=== PATIENT | female | born 1975 | race Caucasian/White ===

== ENCOUNTER 2016-07-21 11:13 | Emergency (ER) | payer SELFPAY ==
[~2016-07-21 11:13] MED LIST: ALBUTEROL0.09 MG/A2 IH; AMOXICILLIN500 M2 PO; AMOXICILLIN500 MG PO; AMOXIL125 MG/5 M PO; AMOXIL500 M1 PO; AMOXIL500 MG PO; ANAPROX DS550 MG PO; ANTIVERT25 MG PO; ASPI-COR81 M1 PO; ASPIRIN81 M1 PO; ATARAX25 MG PO; ATIVAN0.5 MG PO; ATIVAN1 MG PO; ATIVAN2 MG PO; AUGMENTIN 875 M1 TAB PO; AUGMENTIN 875-875 MG PO; AUGMENTIN 875875 MG PO; BACTRIM DS 8001 TA1 PO; BLEPH-10 15 ML15 ML OP; CEFADROXIL500 M1 PO; CIPRODEX 0.3%-7.5 ML OT; CLARITIN-D 10 M1 T21 PO; CLARITIN-D 12 H1 TAB PO; CLARITIN10 MG PO; CLEOCIN HCL150 MG PO; CLINDAMYCIN HC150 MG PO; CLINDAMYCIN HC300 MG PO; CORTISPORIN SUS10 ML OT; DAYPRO600 M1 PO; DIFLUCAN150 MG PO; DOXYCYCLINE100 M2 PO; EES400 MG PO; FLEXERIL10 MG PO; FLONASE 0.05% 121 EA NAS; FLONASE ALLERG9.9 ML NAS; HYDROCODONE BIT1 T11 PO; IBUPROFEN600 MG PO; K-DUR20 MEQ PO; KEFLEX500 MG PO; LEVAQUIN500 M2 PO; LEVOFLOXACIN500 MG PO; LIDEX0.05% T; LIDOCAINE VISC100 ML MM; LISINOPRIL AND1 TA1 PO; LISINOPRIL-HYDR1 TA1 PO; LISINOPRIL10 MG PO; LISINOPRIL20 MG PO; LOPRESSOR50 MG PO; MEDROL DOSEPAK4 MG PO; METOPROLOL SR50 MG PO; METOPROLOL SUC100 M2 PO; METOPROLOL100 MG PO; MOTRIN600 MG PO; MOTRIN800 MG PO; Motrin,Rufen800 MG PO; NAPROSYN500 MG PO; NORCO 10-325 T1 EACH PO; NORCO 325 MG-51 TAB PO; NORCO 5-325 TA1 EACH PO; NORFLEX100 MG PO; OMNICEF300 MG PO; PEN-VEE K500 MG PO; PENICILLIN VK500 MG PO; PERCOCET 325 MG1 TA2 PO; PHENERGAN W/DM120 ML PO; PHENERGAN25 M1 PO; PREDNICOT10 MG PO; PREDNICOT20 MG PO; PREDNISONE10 M1 PO; PREDNISONE10 MG PO; PREDNISONE20 M1 PO; PRINIVIL10 MG; PRINIVIL20 MG PO; PROVENTIL0.09 MG/A1 INH; Peridex 473 ML473 ML PO; ROBAXIN750 MG PO; ROBITUSSIN AC 110 ML PO; TESSALON PERLE100 M1 PO; TESSALON PERLE200 MG PO; TORADOL10 MG PO; TRAMADOL HCL50 MG PO; TRIMOX500 MG PO; ULTRAM50 MG PO; VIBRAMYCIN100 MG PO; VICO10300 PO; VICODIN 5-3001 EACH PO; VICODIN 5/500 505 MG PO; VICODIN ES 7501 TAB PO; VICODIN1 TAB PO; VOLTAREN50 M1 PO; ZANTAC150 MG PO; ZITHROMAX Z PA250 MG PO; ZYRTEC10 M2 PO; ZYRTEC10 MG PO; [UNRECOGNIZED DRUG - OTHER] PO
[2016-07-21] MEDS ORDERED: ROBITUSSIN AC 110 ML PO (11:28)
[2016-07-21] MEDS ORDERED: FLONASE ALLERG9.9 ML NAS (11:28)
[2016-07-21] MEDS ORDERED: PREDNISONE10 MG PO (11:28)
[2016-07-21] MEDS ORDERED: CLARITIN10 MG PO (11:28)
== END 2016-07-21 12:46 | disposition home or self-care (01) ==
LOC: ED 11:13
DX: B34.9 Viral infection, unspecified (principal); R03.0 Elevated blood-pressure reading, without diagnosis of hypertension; F17.200 Nicotine dependence, unspecified, uncomplicated; Z90.49 Acquired absence of other specified parts of digestive tract; Z98.890 Other specified postprocedural states; Z79.82 Long term (current) use of aspirin

== ENCOUNTER 2016-09-22 07:16 | Emergency (ER) | payer SELFPAY ==
[~2016-09-22] VITALS: Ht 167.6 cm; Wt 90.7 kg
[2016-09-22] MEDS ORDERED: PREDNISONE20 M1 PO (07:42)
[2016-09-22] MEDS ORDERED: AMOXICILLIN875 MG PO (07:42)
== END 2016-09-22 08:16 | disposition home or self-care (01) ==
LOC: ED 07:16
DX: J06.9 Acute upper respiratory infection, unspecified (principal); B97.89 Other viral agents as the cause of diseases classified elsewhere; J01.10 Acute frontal sinusitis, unspecified; J45.909 Unspecified asthma, uncomplicated; F17.200 Nicotine dependence, unspecified, uncomplicated; Z79.899 Other long term (current) drug therapy; Z79.82 Long term (current) use of aspirin

== ENCOUNTER 2016-10-27 07:08 | Emergency (ER) | payer SELFPAY ==
[~2016-10-27] VITALS: Ht 167.6 cm; Wt 99.8 kg
[~2016-10-27 07:08] MED LIST changes: +AMOXICILLIN875 MG PO
== END 2016-10-27 10:08 | disposition home or self-care (01) ==
LOC: ED 07:08
DX: T63.441A Toxic effect of venom of bees, accidental (unintentional), initial encounter (principal); F17.200 Nicotine dependence, unspecified, uncomplicated; I10 Essential (primary) hypertension; Z90.49 Acquired absence of other specified parts of digestive tract; Y92.9 Unspecified place or not applicable

== ENCOUNTER 2016-11-13 09:00 | Emergency (ER) | payer SELFPAY ==
[~2016-11-13] VITALS: Ht 167.6 cm; Wt 99.8 kg
[2016-11-13] MEDS ORDERED: AMOXICILLIN500 M2 PO (10:28)
[2016-11-13] MEDS ORDERED: ZYRTEC10 MG PO (10:28)
== END 2016-11-13 10:48 | disposition home or self-care (01) ==
LOC: ED 09:00
DX: R51 Headache (principal); R09.81 Nasal congestion; Z79.899 Other long term (current) drug therapy; Z79.82 Long term (current) use of aspirin; F17.200 Nicotine dependence, unspecified, uncomplicated

== ENCOUNTER 2016-12-09 11:08 | Emergency (ER) | payer SELFPAY ==
[~2016-12-09] VITALS: Ht 167.6 cm; Wt 99.8 kg
[2016-12-09] MEDS ORDERED: AMOXICILLIN500 M2 PO (11:22)
== END 2016-12-09 11:59 | disposition home or self-care (01) ==
LOC: ED 11:08
DX: K04.7 Periapical abscess without sinus (principal); F17.200 Nicotine dependence, unspecified, uncomplicated; Z90.49 Acquired absence of other specified parts of digestive tract; Z98.890 Other specified postprocedural states; Z79.82 Long term (current) use of aspirin; Z79.899 Other long term (current) drug therapy

== ENCOUNTER 2017-03-31 12:17 | Emergency (ER) | payer SELFPAY ==
[~2017-03-31] VITALS: Ht 167.6 cm; Wt 104.3 kg
[2017-03-31] MEDS ORDERED: PREDNISONE10 MG PO (12:35)
== END 2017-03-31 12:34 | disposition home or self-care (01) ==
LOC: ED 12:17
DX: M77.8 Other enthesopathies, not elsewhere classified (principal); R03.0 Elevated blood-pressure reading, without diagnosis of hypertension; F17.200 Nicotine dependence, unspecified, uncomplicated; Z79.899 Other long term (current) drug therapy

== ENCOUNTER 2017-05-26 15:46 | Emergency (ER) | payer SELFPAY ==
[~2017-05-26] VITALS: Ht 167.6 cm; Wt 94.3 kg
[2017-05-26] MEDS ORDERED: OMNICEF300 MG PO (16:15)
== END 2017-05-26 16:19 | disposition home or self-care (01) ==
LOC: ED 15:46
DX: H66.93 Otitis media, unspecified, bilateral (principal); J32.9 Chronic sinusitis, unspecified; I10 Essential (primary) hypertension; F17.200 Nicotine dependence, unspecified, uncomplicated; Z79.899 Other long term (current) drug therapy

== ENCOUNTER 2017-06-17 16:13 | Emergency (ER) | payer SELFPAY ==
[~2017-06-17] VITALS: Ht 167.6 cm; Wt 97.1 kg
[2017-06-17] MEDS ORDERED: KENALOG 0.1%80 GM T (16:23)
== END 2017-06-17 16:27 | disposition home or self-care (01) ==
LOC: ED 16:13
DX: L25.9 Unspecified contact dermatitis, unspecified cause (principal); I10 Essential (primary) hypertension; Z79.82 Long term (current) use of aspirin; Z79.899 Other long term (current) drug therapy

== ENCOUNTER 2017-09-09 16:05 | Emergency (ER) | payer SELFPAY ==
[~2017-09-09] VITALS: Ht 167.6 cm; Wt 95.7 kg
[~2017-09-09 16:05] MED LIST changes: +KENALOG 0.1%80 GM T
[2017-09-09] MEDS ORDERED: KEFLEX500 M1 PO (16:09)
[2017-09-09] MEDS ORDERED: NAPROSYN500 MG PO (16:09)
== END 2017-09-09 17:07 | disposition home or self-care (01) ==
LOC: ED 16:05
DX: S80.01XA Contusion of right knee, initial encounter (principal); R03.0 Elevated blood-pressure reading, without diagnosis of hypertension; Z79.82 Long term (current) use of aspirin; Z79.899 Other long term (current) drug therapy; Z90.49 Acquired absence of other specified parts of digestive tract; W10.1XXA Fall (on)(from) sidewalk curb, initial encounter; Y93.89 Activity, other specified; Y92.480 Sidewalk as the place of occurrence of the external cause; Y99.8 Other external cause status

== ENCOUNTER 2017-12-29 18:30 | Emergency (ER) | payer SELFPAY ==
[~2017-12-29] VITALS: Ht 167.6 cm; Wt 97.1 kg
[~2017-12-29 18:30] MED LIST changes: +KEFLEX500 M1 PO
[2017-12-29] MEDS ORDERED: AMOXICILLIN500 M2 PO (20:42)
[2017-12-29] MEDS ORDERED: DELTASONE20 M1 PO (20:42)
== END 2017-12-29 20:52 | disposition home or self-care (01) ==
LOC: ED 18:30
DX: J40 Bronchitis, not specified as acute or chronic (principal); F17.200 Nicotine dependence, unspecified, uncomplicated; Z79.899 Other long term (current) drug therapy; Z79.02 Long term (current) use of antithrombotics/antiplatelets

== ENCOUNTER 2018-05-25 08:52 | Emergency (ER) | payer SELFPAY ==
[~2018-05-25] VITALS: Ht 167.6 cm; Wt 95.3 kg
[~2018-05-25 08:52] MED LIST changes: +DELTASONE20 M1 PO
[2018-05-25] MEDS ORDERED: FLONASE ALLERG9.9 ML NAS (09:22)
[2018-05-25] MEDS ORDERED: PREDNISONE20 M1 PO (09:22)
[2018-05-25] MEDS ORDERED: ALLEGRA ALLERG180 M2 PO (09:22)
== END 2018-05-25 09:37 | disposition home or self-care (01) ==
LOC: ED 08:52
DX: H65.93 Unspecified nonsuppurative otitis media, bilateral (principal); J30.9 Allergic rhinitis, unspecified; I10 Essential (primary) hypertension; Z87.891 Personal history of nicotine dependence; Z79.899 Other long term (current) drug therapy; Z79.82 Long term (current) use of aspirin

== ENCOUNTER 2018-06-18 05:45 | Emergency (ER) | payer SELFPAY ==
[~2018-06-18] VITALS: Ht 167.6 cm; Wt 95.3 kg
--- NOTE | ~2018-06-18 | EKG ---
[place], [place] ELECTROCARDIOGRAM REPORT NAME: RACHEL SORIANO UNIT #: [id number] ROOM: DOCTOR: EPIPHANY DRAFT REPORT BIRTHDATE: [birth year] [facility] Test Date: 2018-06-18 Test Time: 06:22:51 Pat Name: RACHEL SORIANO Department: Room: Gender: F Sales Apprentice: Kathia Haddad : 1975 Requested By: SHIRA GARBER Order Number: [id number] Reading MD: Oskar Gomes MD Measurements Intervals [place] Rate: 77 P: -9 RI: 192 QRS: -5 QRSD: 91 T: 58 QT: 392 QTc: 444 Interpretive Statements Sinus rhythm LVH by voltage Anterior Q waves, possibly due to LVH Electronically Signed On 06-19-2018 11:29:01 PDT by Oskar Gomes MD CM:EKGRPT:ELECTROCARDIOGRAM REPORT [id number] SHIRA STOKES DRAFT REPORT SHIRA GARBER DO
[~2018-06-18 05:45] MED LIST changes: +ALLEGRA ALLERG180 M2 PO
[2018-06-18 06:29] LABS: BASO # 0.1 10*3/uL (0.0-0.1); BASO % 0.8 % (0.0-1.0); EOS # 0.2 10*3/uL (0.0-0.4); EOS % 2.9 % (1.0-4.0); HEMATOCRIT 43.3 % (37.0-47.0); HEMOGLOBIN 14.5 g/dl (12.0-16.0); LYMPH # 2.2 10*3/uL (1.3-4.4); LYMPH % 34.6 % (27.0-41.0); MEAN CELL VOLUME 88.9 fl (81.0-99.0); MEAN CORPUSCULAR HGB 29.8 pg (27.0-31.0); MEAN CORPUSCULAR HGB CONC 33.5 g/dl (33.0-37.0); MEAN PLATELET VOLUME 9.6 fl (9.6-12.3); MONO # 0.6 10*3/uL (0.1-1.0); MONO % 8.7 % (3.0-9.0); NEUT # 3.4 10*3/uL (2.3-7.9); NEUT % 52.7 % (47.0-73.0); PLATELET COUNT AUTOMATED 296 10*3/uL (130-400); RED BLOOD COUNT 4.87 10*6/uL (4.10-5.10); RED CELL DISTRI WIDTH 12.6 % (0-14.5); WHITE BLOOD COUNT 6.5 10*3/uL (4.8-10.8)
[2018-06-18 06:54] LABS: ALBUMIN 3.3 gm/dl (3.1-4.5); ALKALINE PHOSPHATASE 64 U/L (45-117); BUN 14 mg/dl (7-24); CHLORIDE 109 mmol/L (98-107); CREATININE 0.73 mg/dL (0.55-1.02); SGOT/AST 10 IU/L (3-35); SGPT/ALT 20 U/L (12-78); SODIUM 138 mmol/L (136-145); TOTAL PROTEIN 7.7 gm/dL (6.4-8.2)
[2018-06-18 06:58] LABS: BETA-HCG, QUANT < 1.0 mIU/mL (1-3); TROPONIN I < 0.015 ng/ml (<0.045)
[2018-06-18] MEDS ORDERED: Motrin,Rufen800 MG PO (08:57)
== END 2018-06-18 09:01 | disposition home or self-care (01) ==
LOC: ED 05:45
PROVIDERS: Student in an Organized Health Care Education/Training Program
DX: R51 Headache (principal); R11.0 Nausea; H92.03 Otalgia, bilateral; I10 Essential (primary) hypertension; E78.5 Hyperlipidemia, unspecified; F17.200 Nicotine dependence, unspecified, uncomplicated; Z79.899 Other long term (current) drug therapy; Z79.82 Long term (current) use of aspirin

== ENCOUNTER 2018-08-19 16:46 | Emergency (ER) | payer SELFPAY ==
[~2018-08-19] VITALS: Ht 167.6 cm; Wt 95.3 kg
[2018-08-19 17:05] LABS: BILIRUBIN NEGATIVE (NEGATIVE); BLOOD 3+ (NEGATIVE); CLARITY CLEAR (CLEAR); COLOR YELLOW (YELLOW); GLUCOSE NEGATIVE (NEGATIVE); KETONE NEGATIVE (NEGATIVE); LEUKO ESTERASE NEGATIVE (NEGATIVE); NITRITE NEGATIVE (NEGATIVE); SPECIFIC GRAVITY <= 1.005 (1.005-1.030); UROBILINOGEN 0.2 E.U./dl (0.2-1.0)
[2018-08-19 17:06] LABS: BASO # 0.1 10*3/uL (0.0-0.1); BASO % 0.7 % (0.0-1.0); EOS # 0.3 10*3/uL (0.0-0.4); EOS % 2.9 % (1.0-4.0); HEMATOCRIT 42.4 % (37.0-47.0); HEMOGLOBIN 14.2 g/dl (12.0-16.0); LYMPH # 3.2 10*3/uL (1.3-4.4); LYMPH % 37.7 % (27.0-41.0); MEAN CELL VOLUME 88.5 fl (81.0-99.0); MEAN CORPUSCULAR HGB 29.6 pg (27.0-31.0); MEAN CORPUSCULAR HGB CONC 33.5 g/dl (33.0-37.0); MEAN PLATELET VOLUME 9.5 fl (9.6-12.3); MONO # 0.6 10*3/uL (0.1-1.0); MONO % 7.1 % (3.0-9.0); NEUT # 4.4 10*3/uL (2.3-7.9); NEUT % 51.5 % (47.0-73.0); PLATELET COUNT AUTOMATED 312 10*3/uL (130-400); RED BLOOD COUNT 4.79 10*6/uL (4.10-5.10); RED CELL DISTRI WIDTH 12.8 % (0-14.5); WHITE BLOOD COUNT 8.6 10*3/uL (4.8-10.8)
[2018-08-19 17:14] LABS: BACTERIA TRACE; RBC 16-20 rbc/hpf (0-2); WBC 0-2 wbc/hpf (0-5)
[2018-08-19 17:20] LABS: ALBUMIN 3.6 gm/dl (3.1-4.5); ALKALINE PHOSPHATASE 71 U/L (45-117); BUN 13 mg/dl (7-24); CHLORIDE 106 mmol/L (98-107); CREATININE 0.78 mg/dL (0.55-1.02); POTASSIUM 3.8 mmol/L (3.5-5.1); SGOT/AST 9 IU/L (3-35); SGPT/ALT 25 U/L (12-78); SODIUM 138 mmol/L (136-145); TOTAL PROTEIN 7.8 gm/dL (6.4-8.2)
[2018-08-19] MEDS ORDERED: MACROBID100 M1 PO (19:03)
== END 2018-08-19 19:13 | disposition home or self-care (01) ==
LOC: ED 16:46
PROVIDERS: Nurse Practitioner Family
DX: R31.9 Hematuria, unspecified (principal); R30.0 Dysuria; R35.0 Frequency of micturition; R10.9 Unspecified abdominal pain; Z79.899 Other long term (current) drug therapy; Z79.82 Long term (current) use of aspirin; Z90.49 Acquired absence of other specified parts of digestive tract

== ENCOUNTER 2018-10-17 17:16 | Emergency (ER) | payer SELFPAY ==
[~2018-10-17] VITALS: Ht 167.6 cm; Wt 97.5 kg
[~2018-10-17 17:16] MED LIST changes: +MACROBID100 M1 PO
[2018-10-17] MEDS ORDERED: IBUPROFEN600 MG PO (17:51)
[2018-10-17] MEDS ORDERED: AUGMENTIN 875-875 MG PO (17:51)
== END 2018-10-17 17:51 | disposition home or self-care (01) ==
LOC: ED 17:16
DX: L08.82 Omphalitis not of newborn (principal); Z79.899 Other long term (current) drug therapy; Z79.82 Long term (current) use of aspirin; Z98.890 Other specified postprocedural states; Z90.89 Acquired absence of other organs; Z90.49 Acquired absence of other specified parts of digestive tract

== ENCOUNTER 2018-12-10 08:41 | Emergency (ER) | payer SELFPAY ==
[~2018-12-10] VITALS: Wt 96.2 kg
[2018-12-10] MEDS ORDERED: PREDNISONE20 M1 PO (10:44)
[2018-12-10] MEDS ORDERED: PROVENTIL HFA6.7 GM INH (10:44)
[2018-12-10] MEDS ORDERED: TESSALON PERLE100 M1 PO (10:44)
== END 2018-12-10 11:00 | disposition home or self-care (01) ==
LOC: ED 08:41
DX: J45.909 Unspecified asthma, uncomplicated (principal); J02.9 Acute pharyngitis, unspecified; F17.200 Nicotine dependence, unspecified, uncomplicated; Z79.899 Other long term (current) drug therapy; Z79.82 Long term (current) use of aspirin

== ENCOUNTER 2019-03-26 08:14 | Emergency (ER) | payer SELFPAY ==
[~2019-03-26] VITALS: Ht 167.6 cm; Wt 95.3 kg
[~2019-03-26 08:14] MED LIST changes: +PROVENTIL HFA6.7 GM INH
[2019-03-26 09:08] LABS: BASO # 0.1 10*3/uL (0.0-0.1); BASO % 1.1 % (0.0-1.0); EOS # 0.2 10*3/uL (0.0-0.4); EOS % 3.3 % (1.0-4.0); HEMATOCRIT 44.5 % (37.0-47.0); HEMOGLOBIN 14.6 g/dl (12.0-16.0); LYMPH % 35.6 % (27.0-41.0); MEAN CELL VOLUME 87.4 fl (81.0-99.0); MEAN CORPUSCULAR HGB 28.7 pg (27.0-31.0); MEAN CORPUSCULAR HGB CONC 32.8 g/dl (33.0-37.0); MEAN PLATELET VOLUME 9.7 fl (9.6-12.3); MONO # 0.4 10*3/uL (0.1-1.0); MONO % 7.7 % (3.0-9.0); NEUT % 52.3 % (47.0-73.0); PLATELET COUNT AUTOMATED 326 10*3/uL (130-400); RED BLOOD COUNT 5.09 10*6/uL (4.10-5.10); RED CELL DISTRI WIDTH 12.5 % (0-14.5); WHITE BLOOD COUNT 5.7 10*3/uL (4.8-10.8)
[2019-03-26 09:15] LABS: ACT PARTIAL THROMBO TIME 25.3 SECONDS (20.0-32.1); INTERNATIONAL NORM RATIO 0.9 (2.0-3.5)
[2019-03-26 09:22] LABS: ALBUMIN 3.6 gm/dl (3.1-4.5); ALKALINE PHOSPHATASE 65 U/L (45-117); B-hCG (QUALITATIVE) NEGATIVE (NEGATIVE); BUN 10 mg/dl (7-24); CHLORIDE 109 mmol/L (98-107); CREATININE 0.82 mg/dL (0.55-1.02); LIPASE 244 U/L (73-393); POTASSIUM 3.7 mmol/L (3.5-5.1); SGOT/AST 18 IU/L (3-35); SGPT/ALT 27 U/L (12-78); SODIUM 139 mmol/L (136-145); TOTAL PROTEIN 7.6 gm/dL (6.4-8.2)
[2019-03-26 09:25] LABS: TROPONIN I < 0.015 ng/ml (<0.045)
[2019-03-26] MEDS ORDERED: AUGMENTIN 875875 MG PO (11:20)
== END 2019-03-26 12:06 | disposition home or self-care (01) ==
LOC: ED 08:14
PROVIDERS: Emergency Medicine
DX: I70.0 Atherosclerosis of aorta (principal); K76.0 Fatty (change of) liver, not elsewhere classified; L08.9 Local infection of the skin and subcutaneous tissue, unspecified; J45.909 Unspecified asthma, uncomplicated; I10 Essential (primary) hypertension; F17.200 Nicotine dependence, unspecified, uncomplicated; Z79.2 Long term (current) use of antibiotics; Z79.82 Long term (current) use of aspirin; Z79.899 Other long term (current) drug therapy; Z90.49 Acquired absence of other specified parts of digestive tract

== ENCOUNTER 2019-05-23 14:38 | Emergency (ER) | payer BC ==
[~2019-05-23] VITALS: Ht 167.6 cm; Wt 97.5 kg
[2019-05-23 16:07] LABS: BASO % 0.3 % (0.0-1.0); EOS # 0.1 10*3/uL (0.0-0.4); EOS % 0.5 % (1.0-4.0); HEMATOCRIT 42.1 % (37.0-47.0); HEMOGLOBIN 13.7 g/dl (12.0-16.0); LYMPH # 4.8 10*3/uL (1.3-4.4); MEAN CORPUSCULAR HGB CONC 32.5 g/dl (33.0-37.0); MEAN PLATELET VOLUME 9.8 fl (9.6-12.3); MONO # 1.1 10*3/uL (0.1-1.0); MONO % 8.2 % (3.0-9.0); NEUT # 7.6 10*3/uL (2.3-7.9); NEUT % 55.6 % (47.0-73.0); PLATELET COUNT AUTOMATED 342 10*3/uL (130-400); RED BLOOD COUNT 4.73 10*6/uL (4.10-5.10); RED CELL DISTRI WIDTH 13.2 % (0-14.5); WHITE BLOOD COUNT 13.7 10*3/uL (4.8-10.8)
[2019-05-23 16:21] LABS: ALBUMIN 3.5 gm/dl (3.1-4.5); ALKALINE PHOSPHATASE 63 U/L (45-117); BUN 13 mg/dl (7-24); CHLORIDE 107 mmol/L (98-107); CREATININE 0.83 mg/dL (0.55-1.02); POTASSIUM 3.4 mmol/L (3.5-5.1); SGOT/AST 12 IU/L (3-35); SGPT/ALT 26 U/L (12-78); SODIUM 141 mmol/L (136-145); TOTAL PROTEIN 7.6 gm/dL (6.4-8.2)
[2019-05-23] MEDS ORDERED: TESSALON PERLE100 M1 PO (17:22)
[2019-05-23] MEDS ORDERED: PREDNISONE20 M1 PO (17:22)
[2019-05-23] MEDS ORDERED: PROVENTIL HFA6.7 GM INH (17:22)
== END 2019-05-23 17:30 | disposition home or self-care (01) ==
LOC: ED 14:38
PROVIDERS: Physician Assistant
DX: J45.901 Unspecified asthma with (acute) exacerbation (principal); I10 Essential (primary) hypertension; F17.200 Nicotine dependence, unspecified, uncomplicated; Z79.2 Long term (current) use of antibiotics; Z79.899 Other long term (current) drug therapy; Z90.49 Acquired absence of other specified parts of digestive tract

== ENCOUNTER → 2019-06-10 | Day surgery (SDC) | payer BC ==
[~2019-06-10] VITALS: Ht 167.6 cm; Wt 97.5 kg
[~2019-06-10] MED LIST changes: +OCUFLOX 0.3% 5 M5 ML OP; +PREDNISOLONE ACE5 M5 OP
[2019-06-10 08:40] VITALS: BP 173/82
[2019-06-10 08:55] VITALS: BP 166/79
[2019-06-10 09:10] VITALS: BP 144/72
[2019-06-10 09:25] VITALS: BP 140/76
[2019-06-10 09:40] VITALS: BP 150/78
== END | disposition home or self-care (01) ==
LOC: SDC 06-05 08:45
DX: H25.12 Age-related nuclear cataract, left eye (principal); I10 Essential (primary) hypertension; J45.909 Unspecified asthma, uncomplicated; Z87.891 Personal history of nicotine dependence; Z82.3 Family history of stroke; Z82.49 Family history of ischemic heart disease and other diseases of the circulatory system

== ENCOUNTER 2019-07-27 08:23 | Emergency (ER) | payer BC ==
[~2019-07-27] VITALS: Ht 167.6 cm; Wt 108.9 kg
[2019-07-27] MEDS ORDERED: ZESTORETIC 20-1 EACH PO (08:38)
[2019-07-27] MEDS ORDERED: FLONASE ALLERG9.9 ML NAS (09:09)
[2019-07-27] MEDS ORDERED: Motrin,Rufen800 MG PO (09:09)
[2019-07-27] MEDS ORDERED: AUGMENTIN 875875 MG PO (09:09)
== END 2019-07-27 09:12 | disposition home or self-care (01) ==
LOC: ED 08:23
DX: J01.90 Acute sinusitis, unspecified (principal); I10 Essential (primary) hypertension; J45.909 Unspecified asthma, uncomplicated; F17.200 Nicotine dependence, unspecified, uncomplicated; Z79.899 Other long term (current) drug therapy; Z90.49 Acquired absence of other specified parts of digestive tract; Z98.890 Other specified postprocedural states

== ENCOUNTER → 2019-08-12 | Day surgery (SDC) | payer BC ==
[~2019-08-12] VITALS: Ht 167.6 cm; Wt 108.9 kg
[~2019-08-12] MED LIST changes: +ASPIRIN CHEWABL81 MG PO; +ZESTORETIC 20-1 EACH PO
[2019-08-12 06:40] VITALS: BP 180/89
[2019-08-12 08:20] VITALS: BP 195/91
[2019-08-12 08:34] VITALS: BP 165/71
[2019-08-12 08:47] VITALS: BP 160/73
[2019-08-12 09:18] VITALS: BP 168/84
== END | disposition home or self-care (01) ==
LOC: SDC 07-02 08:00
DX: H25.811 Combined forms of age-related cataract, right eye (principal); I10 Essential (primary) hypertension; J45.909 Unspecified asthma, uncomplicated; M19.90 Unspecified osteoarthritis, unspecified site; Z87.891 Personal history of nicotine dependence; Z82.49 Family history of ischemic heart disease and other diseases of the circulatory system; Z82.3 Family history of stroke; Z80.8 Family history of malignant neoplasm of other organs or systems

== ENCOUNTER 2019-09-28 17:27 | Emergency (ER) | payer BC ==
[~2019-09-28] VITALS: Ht 167.6 cm; Wt 95.3 kg
[2019-09-28] MEDS ORDERED: MEDROL DOSEPAK4 MG PO (18:01)
== END 2019-09-28 18:11 | disposition home or self-care (01) ==
LOC: ED 17:27
DX: M77.9 Enthesopathy, unspecified (principal); M25.522 Pain in left elbow; Z79.899 Other long term (current) drug therapy; Z79.82 Long term (current) use of aspirin; X58.XXXA Exposure to other specified factors, initial encounter; Y93.89 Activity, other specified; Y92.89 Other specified places as the place of occurrence of the external cause; Y99.0 Civilian activity done for income or pay

== ENCOUNTER 2019-10-24 10:50 | Emergency (ER) | payer BC ==
[~2019-10-24] VITALS: Ht 167.6 cm; Wt 104.3 kg
[2019-10-24] MEDS ORDERED: PROAIR HFA8.5 GM INH (13:31)
[2019-10-24] MEDS ORDERED: PREDNISONE50 MG PO (13:31)
[2019-10-24] MEDS ORDERED: ZITHROMAX250 MG PO (13:31)
[2019-10-24] MEDS ORDERED: ZESTORETIC 20-1 EACH PO (13:31)
== END 2019-10-24 13:37 | disposition home or self-care (01) ==
LOC: ED 10:50
DX: J20.9 Acute bronchitis, unspecified (principal); Z76.0 Encounter for issue of repeat prescription; I10 Essential (primary) hypertension; J45.909 Unspecified asthma, uncomplicated; F17.200 Nicotine dependence, unspecified, uncomplicated; Z79.82 Long term (current) use of aspirin; Z79.899 Other long term (current) drug therapy; Z90.49 Acquired absence of other specified parts of digestive tract

== ENCOUNTER 2020-02-01 07:18 | Emergency (ER) | payer BC ==
[~2020-02-01] VITALS: Wt 104.3 kg
[~2020-02-01 07:18] MED LIST changes: +PREDNISONE50 MG PO; +PROAIR HFA8.5 GM INH; +ZITHROMAX250 MG PO
[2020-02-01] MEDS ORDERED: TYLENOL325 M1 PO ×3 (08:35→14:45)
[2020-02-01] MEDS ORDERED: MUCINEX DM 30/61 TAB PO ×3 (08:35→14:45)
[2020-02-01] MEDS ORDERED: NAPROXEN250 MG PO ×3 (08:35→14:45)
[2020-02-01] MEDS ORDERED: FLONASE ALLERG9.9 ML NAS ×3 (08:35→14:45)
== END 2020-02-01 08:37 | disposition home or self-care (01) ==
LOC: ED 07:18
DX: J06.9 Acute upper respiratory infection, unspecified (principal); J45.909 Unspecified asthma, uncomplicated; Z79.899 Other long term (current) drug therapy

== ENCOUNTER 2020-02-16 10:58 | Emergency (ER) | payer BC ==
[~2020-02-16 10:58] MED LIST changes: +MUCINEX DM 30/61 TAB PO; +NAPROXEN250 MG PO; +TYLENOL325 M1 PO
[2020-02-16] MEDS ORDERED: PREDNISONE20 M1 PO (12:32)
[2020-02-16] MEDS ORDERED: PROVENTIL HFA6.7 GM PO (12:32)
== END 2020-02-16 12:43 | disposition home or self-care (01) ==
LOC: ED 10:58
DX: J45.901 Unspecified asthma with (acute) exacerbation (principal); I10 Essential (primary) hypertension; F41.9 Anxiety disorder, unspecified; Z90.49 Acquired absence of other specified parts of digestive tract; Z79.899 Other long term (current) drug therapy

== ENCOUNTER 2020-07-12 08:02 | Emergency (ER) | payer BC ==
[~2020-07-12] VITALS: Wt 104.3 kg
[~2020-07-12 08:02] MED LIST changes: +PROVENTIL HFA6.7 GM PO
[2020-07-12 08:46] LABS: BASO % 0.8 % (0.0-1.0); EOS # 0.2 10*3/uL (0.0-0.4); EOS % 3.7 % (1.0-4.0); HEMATOCRIT 42.6 % (37.0-47.0); LYMPH # 1.8 10*3/uL (1.3-4.4); LYMPH % 36.3 % (27.0-41.0); MEAN CELL VOLUME 86.1 fl (81.0-99.0); MEAN CORPUSCULAR HGB 28.1 pg (27.0-31.0); MEAN CORPUSCULAR HGB CONC 32.6 g/dl (33.0-37.0); MEAN PLATELET VOLUME 9.5 fl (9.6-12.3); MONO # 0.4 10*3/uL (0.1-1.0); MONO % 7.9 % (3.0-9.0); NEUT # 2.5 10*3/uL (2.3-7.9); NEUT % 51.1 % (47.0-73.0); PLATELET COUNT AUTOMATED 292 10*3/uL (130-400); RED BLOOD COUNT 4.95 10*6/uL (4.10-5.10); WHITE BLOOD COUNT 4.8 10*3/uL (4.8-10.8)
[2020-07-12 09:01] LABS: ALBUMIN 3.2 gm/dl (3.1-4.5); ALKALINE PHOSPHATASE 68 U/L (45-117); BUN 10 mg/dl (7-24); CHLORIDE 107 mmol/L (98-107); CREATININE 0.84 mg/dL (0.55-1.02); POTASSIUM 3.4 mmol/L (3.5-5.1); SGOT/AST 15 IU/L (3-35); SGPT/ALT 31 U/L (12-78); SODIUM 138 mmol/L (136-145); TOTAL PROTEIN 7.4 gm/dL (6.4-8.2)
[2020-07-12] MEDS ORDERED: AUGMENTIN 875875 MG PO ×2 (09:33)
[2020-07-12] MEDS ORDERED: PREDNISONE50 MG PO ×2 (09:33)
[2020-07-12] MEDS ORDERED: PROAIR HFA8.5 GM INH (09:33)
== END 2020-07-12 09:37 | disposition home or self-care (01) ==
LOC: ED 08:02
PROVIDERS: Internal Medicine
DX: J06.9 Acute upper respiratory infection, unspecified (principal); F17.200 Nicotine dependence, unspecified, uncomplicated; Z79.899 Other long term (current) drug therapy; Z98.890 Other specified postprocedural states; Z90.49 Acquired absence of other specified parts of digestive tract

== ENCOUNTER 2020-07-27 08:19 | Emergency (ER) | payer BC ==
[~2020-07-27] VITALS: Ht 167.6 cm; Wt 104.3 kg
[2020-07-27] MEDS ORDERED: NAPROXEN250 MG PO (10:26)
[2020-07-27] MEDS ORDERED: TYLENOL325 M1 PO (10:26)
== END 2020-07-27 10:34 | disposition home or self-care (01) ==
LOC: ED 08:19
DX: S49.91XA Unspecified injury of right shoulder and upper arm, initial encounter (principal); S59.901A Unspecified injury of right elbow, initial encounter; J45.909 Unspecified asthma, uncomplicated; F17.200 Nicotine dependence, unspecified, uncomplicated; Z98.890 Other specified postprocedural states; Z79.899 Other long term (current) drug therapy; Z79.82 Long term (current) use of aspirin; Z90.49 Acquired absence of other specified parts of digestive tract; X58.XXXA Exposure to other specified factors, initial encounter; Y93.89 Activity, other specified; Y92.89 Other specified places as the place of occurrence of the external cause; Y99.8 Other external cause status

== ENCOUNTER 2020-09-04 05:16 | Emergency (ER) | payer BC ==
[~2020-09-04] VITALS: Ht 167.6 cm; Wt 104.3 kg
[2020-09-04] MEDS ORDERED: IBU800 M1 PO (05:29)
[2020-09-04] MEDS ORDERED: METHOCARBAMOL750 M1 PO (05:29)
== END 2020-09-04 05:52 | disposition home or self-care (01) ==
LOC: ED 05:16
DX: S29.012A Strain of muscle and tendon of back wall of thorax, initial encounter (principal); Z79.899 Other long term (current) drug therapy; Z98.890 Other specified postprocedural states; Z90.49 Acquired absence of other specified parts of digestive tract; Z79.82 Long term (current) use of aspirin; Z90.721 Acquired absence of ovaries, unilateral; X58.XXXA Exposure to other specified factors, initial encounter; Y93.89 Activity, other specified; Y92.89 Other specified places as the place of occurrence of the external cause; Y99.8 Other external cause status

== ENCOUNTER 2021-01-01 12:37 | Emergency (ER) | payer BC ==
[~2021-01-01] VITALS: Ht 167.6 cm; Wt 108.9 kg
[~2021-01-01 12:37] MED LIST changes: +IBU800 M1 PO; +METHOCARBAMOL750 M1 PO
[2021-01-01] MEDS ORDERED: DOXYCYCLINE150 MG PO (13:15)
[2021-01-01] MEDS ORDERED: Motrin,Rufen800 MG PO (13:15)
== END 2021-01-01 13:17 | disposition home or self-care (01) ==
LOC: ED 12:37
DX: B48.8 Other specified mycoses (principal)

== ENCOUNTER 2021-03-21 03:43 | Emergency (ER) | payer BC ==
[~2021-03-21] VITALS: Ht 172.7 cm; Wt 95.3 kg
[~2021-03-21 03:43] MED LIST changes: +DOXYCYCLINE150 MG PO
[2021-03-21] MEDS ORDERED: SEPTDS PO (04:01)
== END 2021-03-21 04:08 | disposition home or self-care (01) ==
LOC: ED 03:43
DX: L03.311 Cellulitis of abdominal wall (principal)

== ENCOUNTER 2021-05-27 12:30 | Inpatient (IN) | payer BC ==
[~2021-05-27] VITALS: Ht 167.6 cm; Wt 99.5 kg
[2021-05-27] VITALS (7 sets, daily range): BP systolic 152–218; BP diastolic 72–85
[~2021-05-27 12:30] MED LIST changes: +SEPTDS PO
[2021-05-27 13:43] LABS: BASO % 0.7 % (0.0-1.0); EOS # 0.2 10*3/uL (0.0-0.4); EOS % 2.8 % (1.0-4.0); HEMATOCRIT 42.6 % (37.0-47.0); LYMPH # 1.7 10*3/uL (1.3-4.4); LYMPH % 29.7 % (27.0-41.0); MEAN CELL VOLUME 86.9 fl (81.0-99.0); MEAN CORPUSCULAR HGB 29.2 pg (27.0-31.0); MEAN CORPUSCULAR HGB CONC 33.6 g/dl (33.0-37.0); MEAN PLATELET VOLUME 9.6 fl (9.6-12.3); MONO # 0.5 10*3/uL (0.1-1.0); MONO % 8.1 % (3.0-9.0); NEUT # 3.4 10*3/uL (2.3-7.9); NEUT % 58.4 % (47.0-73.0); PLATELET COUNT AUTOMATED 280 10*3/uL (130-400); RED CELL DISTRI WIDTH 13.1 % (0-14.5); WHITE BLOOD COUNT 5.8 10*3/uL (4.8-10.8)
[2021-05-27 13:57] LABS: ACT PARTIAL THROMBO TIME 25.7 SECONDS (20.0-32.1)
[2021-05-27 14:13] LABS: ALKALINE PHOSPHATASE 68 U/L (45-117); BUN 12 mg/dl (7-24); CHLORIDE 107 mmol/L (98-107); LIPASE 159 U/L (73-393); POTASSIUM 3.8 mmol/L (3.5-5.1); SGOT/AST 17 IU/L (3-35); SGPT/ALT 26 U/L (12-78); SODIUM 138 mmol/L (136-145); TOTAL PROTEIN 7.6 gm/dL (6.4-8.2)
[2021-05-27] MEDS ORDERED: ZESTORETIC 20-1 EACH PO (14:45)
[2021-05-27 18:57] LABS: BILIRUBIN Negative (Negative); BLOOD Negative (Negative); CLARITY Clear (Clear); COLOR Yellow (Yellow); GLUCOSE Negative (Negative); KETONE Negative (Negative); LEUKO ESTERASE Negative (Negative); NITRITE Negative (Negative); SPECIFIC GRAVITY >= 1.030 (1.001-1.030)
[2021-05-27 19:09] LABS: WBC 0-2 wbc/hpf (0-5)
[2021-05-28] VITALS (40 sets, daily range): BP systolic 102–173; BP diastolic 37–90
[2021-05-28 06:25] LABS: BASO # 0.1 10*3/uL (0.0-0.1); BASO % 0.8 % (0.0-1.0); EOS # 0.2 10*3/uL (0.0-0.4); HEMATOCRIT 39.7 % (37.0-47.0); LYMPH # 2.1 10*3/uL (1.3-4.4); LYMPH % 33.2 % (27.0-41.0); MEAN CORPUSCULAR HGB 28.8 pg (27.0-31.0); MEAN CORPUSCULAR HGB CONC 32.7 g/dl (33.0-37.0); MEAN PLATELET VOLUME 10.1 fl (9.6-12.3); MONO # 0.5 10*3/uL (0.1-1.0); MONO % 8.5 % (3.0-9.0); NEUT # 3.4 10*3/uL (2.3-7.9); NEUT % 54.3 % (47.0-73.0); PLATELET COUNT AUTOMATED 264 10*3/uL (130-400); RED BLOOD COUNT 4.51 10*6/uL (4.10-5.10); RED CELL DISTRI WIDTH 13.2 % (0-14.5); WHITE BLOOD COUNT 6.2 10*3/uL (4.8-10.8)
[2021-05-28 06:45] LABS: CHLORIDE 109 mmol/L (98-107); POTASSIUM 3.9 mmol/L (3.5-5.1); SODIUM 138 mmol/L (136-145)
[2021-05-28 06:57] LABS: ALKALINE PHOSPHATASE 59 U/L (45-117); BUN 17 mg/dl (7-24); CHOLESTEROL 173 mg/dL (<200); CREATININE 0.68 mg/dL (0.55-1.02); FREE T4 0.98 ng/dl (0.76-1.46); LDL CHOLESTEROL 110 mg/dL (9-159); SGOT/AST 26 IU/L (3-35); SGPT/ALT 31 U/L (12-78); TOTAL PROTEIN 6.9 gm/dL (6.4-8.2); TRIGLYCERIDES 129 mg/dl (<150)
[2021-05-29] VITALS (32 sets, daily range): BP systolic 117–161; BP diastolic 44–93
[2021-05-29 06:16] LABS: BUN 13 mg/dl (7-24); CHLORIDE 108 mmol/L (98-107); POTASSIUM 4.3 mmol/L (3.5-5.1); SODIUM 138 mmol/L (136-145)
[2021-05-29 06:20] LABS: BASO % 0.7 % (0.0-1.0); EOS # 0.2 10*3/uL (0.0-0.4); HEMATOCRIT 38.1 % (37.0-47.0); LYMPH # 2.3 10*3/uL (1.3-4.4); LYMPH % 39.2 % (27.0-41.0); MEAN CELL VOLUME 88.4 fl (81.0-99.0); MEAN CORPUSCULAR HGB 28.8 pg (27.0-31.0); MEAN CORPUSCULAR HGB CONC 32.5 g/dl (33.0-37.0); MEAN PLATELET VOLUME 10.3 fl (9.6-12.3); MONO # 0.5 10*3/uL (0.1-1.0); MONO % 8.5 % (3.0-9.0); NEUT # 2.8 10*3/uL (2.3-7.9); NEUT % 48.4 % (47.0-73.0); PLATELET COUNT AUTOMATED 261 10*3/uL (130-400); RED BLOOD COUNT 4.31 10*6/uL (4.10-5.10); WHITE BLOOD COUNT 5.7 10*3/uL (4.8-10.8)
[2021-05-29] MEDS ORDERED: METOPROLOL SUCC50 M1 PO (07:06)
[2021-05-29] MEDS ORDERED: ATORVASTATIN CA80 M1 PO (07:06)
[2021-05-29] MEDS ORDERED: VITAMIN D31250 MCG PO (12:14)
== END 2021-05-29 08:40 | disposition other institution (70) | DRG 282 ==
LOC: ED 12:30 → EDHOLD 17:02 → 5E 17:25 → ICCU 05-28 14:42
PROVIDERS: Internal Medicine; Physician Assistant; ADMIT Internal Medicine; ATTEND Internal Medicine
DX: I21.4 Non-ST elevation (NSTEMI) myocardial infarction (principal); F17.210 Nicotine dependence, cigarettes, uncomplicated; E55.9 Vitamin D deficiency, unspecified; E87.8 Other disorders of electrolyte and fluid balance, not elsewhere classified; E78.5 Hyperlipidemia, unspecified; I10 Essential (primary) hypertension; R73.9 Hyperglycemia, unspecified; E66.9 Obesity, unspecified; Z82.49 Family history of ischemic heart disease and other diseases of the circulatory system; Z90.49 Acquired absence of other specified parts of digestive tract; Z79.82 Long term (current) use of aspirin; Z71.6 Tobacco abuse counseling; Z79.899 Other long term (current) drug therapy; Z68.35 Body mass index [BMI] 35.0-35.9, adult

== ENCOUNTER 2021-06-05 11:05 | Emergency (ER) | payer BC ==
[~2021-06-05] VITALS: Ht 167.6 cm; Wt 96.2 kg
[~2021-06-05 11:05] MED LIST changes: +ATORVASTATIN CA80 M1 PO; +METOPROLOL SUCC50 M1 PO; +VITAMIN D31250 MCG PO
[2021-06-05 12:46] LABS: BASO % 0.5 % (0.0-1.0); EOS # 0.2 10*3/uL (0.0-0.4); EOS % 2.4 % (1.0-4.0); HEMATOCRIT 38.8 % (37.0-47.0); LYMPH # 1.4 10*3/uL (1.3-4.4); LYMPH % 19.3 % (27.0-41.0); MEAN CELL VOLUME 87.2 fl (81.0-99.0); MEAN CORPUSCULAR HGB 28.8 pg (27.0-31.0); MEAN PLATELET VOLUME 10.3 fl (9.6-12.3); MONO # 0.7 10*3/uL (0.1-1.0); MONO % 9.2 % (3.0-9.0); NEUT % 68.3 % (47.0-73.0); PLATELET COUNT AUTOMATED 399 10*3/uL (130-400); RED BLOOD COUNT 4.45 10*6/uL (4.10-5.10); RED CELL DISTRI WIDTH 13.2 % (0-14.5); WHITE BLOOD COUNT 7.4 10*3/uL (4.8-10.8)
[2021-06-05 12:59] LABS: ACT PARTIAL THROMBO TIME 27.1 SECONDS (20.0-32.1)
[2021-06-05 13:00] LABS: ALKALINE PHOSPHATASE 68 U/L (45-117); BUN 23 mg/dl (7-24); CHLORIDE 110 mmol/L (98-107); CREATININE 0.92 mg/dL (0.55-1.02); POTASSIUM 4.1 mmol/L (3.5-5.1); SGOT/AST 23 IU/L (3-35); SGPT/ALT 33 U/L (12-78); SODIUM 136 mmol/L (136-145)
== END 2021-06-05 19:30 | disposition home or self-care (01) ==
LOC: ED 11:05
PROVIDERS: Physician Assistant
DX: S30.1XXA Contusion of abdominal wall, initial encounter (principal); Z79.899 Other long term (current) drug therapy; Z79.82 Long term (current) use of aspirin; Z90.49 Acquired absence of other specified parts of digestive tract; Z98.890 Other specified postprocedural states; Z87.891 Personal history of nicotine dependence; X58.XXXA Exposure to other specified factors, initial encounter; Y93.89 Activity, other specified; Y92.89 Other specified places as the place of occurrence of the external cause; Y99.8 Other external cause status

== ENCOUNTER → 2021-07-27 | Outpatient (CLI) | payer BC ==
[~2021-07-27] MED LIST changes: +BRILINTA90 M1 PO; +LISINOPRIL40 MG PO
== END | disposition home or self-care (01) ==
LOC: CARD 14:47
PROVIDERS: ATTEND Internal Medicine
DX: I34.1 Nonrheumatic mitral (valve) prolapse (principal); I21.4 Non-ST elevation (NSTEMI) myocardial infarction

== ENCOUNTER 2021-09-28 07:23 | Inpatient (IN) | payer BC ==
[2021-09-28] VITALS (8 sets, daily range): BP systolic 131–182; BP diastolic 59–87
[~2021-09-28] VITALS: Ht 167.6 cm; Wt 94.9 kg
[2021-09-28 07:46] LABS: BASO % 0.8 % (0.0-1.0); EOS # 0.2 10*3/uL (0.0-0.4); EOS % 3.1 % (1.0-4.0); HEMATOCRIT 39.6 % (37.0-47.0); LYMPH # 1.6 10*3/uL (1.3-4.4); LYMPH % 30.7 % (27.0-41.0); MEAN CORPUSCULAR HGB 28.6 pg (27.0-31.0); MEAN CORPUSCULAR HGB CONC 32.8 g/dl (33.0-37.0); MONO # 0.4 10*3/uL (0.1-1.0); MONO % 7.7 % (3.0-9.0); NEUT % 57.5 % (47.0-73.0); PLATELET COUNT AUTOMATED 302 10*3/uL (130-400); RED BLOOD COUNT 4.55 10*6/uL (4.10-5.10); RED CELL DISTRI WIDTH 13.2 % (0-14.5); WHITE BLOOD COUNT 5.2 10*3/uL (4.8-10.8)
[2021-09-28 07:58] LABS: ACT PARTIAL THROMBO TIME 26.8 SECONDS (20.0-32.1)
[2021-09-28 08:04] LABS: ALKALINE PHOSPHATASE 73 U/L (45-117); BUN 10 mg/dl (7-24); CHLORIDE 112 mmol/L (98-107); CREATININE 0.67 mg/dL (0.55-1.02); POTASSIUM 3.7 mmol/L (3.5-5.1); SGOT/AST 17 IU/L (3-35); SGPT/ALT 25 U/L (12-78); SODIUM 141 mmol/L (136-145)
[2021-09-28] MEDS ORDERED: COREG3.125 MG PO (10:59)
[2021-09-29] VITALS: BP 147/84
[2021-09-29 06:07] LABS: BASO % 0.9 % (0.0-1.0); EOS # 0.2 10*3/uL (0.0-0.4); EOS % 3.5 % (1.0-4.0); HEMATOCRIT 39.7 % (37.0-47.0); LYMPH # 1.7 10*3/uL (1.3-4.4); LYMPH % 36.5 % (27.0-41.0); MEAN CELL VOLUME 87.6 fl (81.0-99.0); MEAN CORPUSCULAR HGB 28.7 pg (27.0-31.0); MEAN CORPUSCULAR HGB CONC 32.7 g/dl (33.0-37.0); MEAN PLATELET VOLUME 10.4 fl (9.6-12.3); MONO # 0.3 10*3/uL (0.1-1.0); MONO % 7.4 % (3.0-9.0); NEUT # 2.4 10*3/uL (2.3-7.9); NEUT % 51.7 % (47.0-73.0); PLATELET COUNT AUTOMATED 281 10*3/uL (130-400); RED BLOOD COUNT 4.53 10*6/uL (4.10-5.10); RED CELL DISTRI WIDTH 13.2 % (0-14.5); WHITE BLOOD COUNT 4.6 10*3/uL (4.8-10.8)
[2021-09-29 06:12] LABS: ALKALINE PHOSPHATASE 72 U/L (45-117); BUN 12 mg/dl (7-24); CHLORIDE 112 mmol/L (98-107); CHOLESTEROL 89 mg/dL (<200); CREATININE 0.77 mg/dL (0.55-1.02); LDL CHOLESTEROL 32 mg/dL (9-159); POTASSIUM 3.7 mmol/L (3.5-5.1); SGOT/AST 16 IU/L (3-35); SODIUM 142 mmol/L (136-145); TOTAL PROTEIN 6.7 gm/dL (6.4-8.2); TRIGLYCERIDES 147 mg/dl (<150)
[2021-09-29 06:19] LABS: SGPT/ALT 26 U/L (12-78)
[2021-09-29 08:00] VITALS: BP 178/74
[2021-09-29] MEDS ORDERED: AMLODIPINE BESYL5 MG PO (15:06)
[2021-09-29] MEDS ORDERED: CARVEDILOL6.25 MG PO (15:06)
[2021-09-29 16:12] VITALS: BP 160/72
== END 2021-09-29 16:29 | disposition home or self-care (01) | DRG 206 ==
LOC: ED 07:23 → EDHOLD 09:35 → 5E 09:35 → EDHOLD 09:42 → 5E 10:11
PROVIDERS: Emergency Medicine; Registered Nurse; ADMIT Family Medicine; ATTEND Family Medicine
PROC: 4A02XM4 Measurement of Cardiac Total Activity, External Approach (ICD-10-PCS; principal; 2021-09-29)
PROC: 3E073KZ Introduction of Other Diagnostic Substance into Coronary Artery, Percutaneous Approach (ICD-10-PCS; 2021-09-29)
DX: M94.0 Chondrocostal junction syndrome [Tietze] (principal); I25.10 Atherosclerotic heart disease of native coronary artery without angina pectoris; J45.909 Unspecified asthma, uncomplicated; I10 Essential (primary) hypertension; E55.9 Vitamin D deficiency, unspecified; F17.210 Nicotine dependence, cigarettes, uncomplicated; E78.2 Mixed hyperlipidemia; I25.2 Old myocardial infarction; Z90.49 Acquired absence of other specified parts of digestive tract; Z95.5 Presence of coronary angioplasty implant and graft; Z82.49 Family history of ischemic heart disease and other diseases of the circulatory system

== ENCOUNTER 2021-10-31 09:55 | Emergency (ER) | payer BC ==
[~2021-10-31 09:55] MED LIST changes: +AMLODIPINE BESYL5 MG PO; +CARVEDILOL6.25 MG PO; +COREG3.125 MG PO
[2021-10-31 12:09] LABS: BASO % 0.3 % (0.0-1.0); EOS % 1.3 % (1.0-4.0); HEMATOCRIT 44.1 % (37.0-47.0); LYMPH # 1.3 10*3/uL (1.3-4.4); LYMPH % 41.2 % (27.0-41.0); MEAN CELL VOLUME 85.3 fl (81.0-99.0); MEAN CORPUSCULAR HGB 27.7 pg (27.0-31.0); MEAN CORPUSCULAR HGB CONC 32.4 g/dl (33.0-37.0); MEAN PLATELET VOLUME 9.6 fl (9.6-12.3); MONO # 0.3 10*3/uL (0.1-1.0); NEUT # 1.5 10*3/uL (2.3-7.9); NEUT % 49.2 % (47.0-73.0); PLATELET COUNT AUTOMATED 241 10*3/uL (130-400); RED BLOOD COUNT 5.17 10*6/uL (4.10-5.10); RED CELL DISTRI WIDTH 13.7 % (0-14.5); WHITE BLOOD COUNT 3.1 10*3/uL (4.8-10.8)
[2021-10-31 12:20] LABS: ACT PARTIAL THROMBO TIME 26.5 SECONDS (20.0-32.1)
[2021-10-31 12:34] LABS: ALKALINE PHOSPHATASE 73 U/L (45-117); BUN 12 mg/dl (7-24); CHLORIDE 111 mmol/L (98-107); LIPASE 195 U/L (73-393); POTASSIUM 3.9 mmol/L (3.5-5.1); SGOT/AST 25 IU/L (3-35); SGPT/ALT 38 U/L (12-78); SODIUM 138 mmol/L (136-145); TOTAL PROTEIN 7.8 gm/dL (6.4-8.2)
== END 2021-10-31 15:12 | disposition home or self-care (01) ==
LOC: ED 09:55
PROVIDERS: Physician Assistant
DX: E86.0 Dehydration (principal); Z79.899 Other long term (current) drug therapy; Z79.82 Long term (current) use of aspirin; F17.200 Nicotine dependence, unspecified, uncomplicated; Z90.49 Acquired absence of other specified parts of digestive tract; Z98.890 Other specified postprocedural states

== ENCOUNTER 2021-11-29 09:34 | Emergency (ER) | payer BC ==
[~2021-11-29] VITALS: Ht 167.6 cm; Wt 97.5 kg
[2021-11-29] MEDS ORDERED: CLEOCIN HCL300 MG PO (10:26)
== END 2021-11-29 10:52 | disposition home or self-care (01) ==
LOC: ED 09:34
DX: K04.7 Periapical abscess without sinus (principal); F17.200 Nicotine dependence, unspecified, uncomplicated; Z90.49 Acquired absence of other specified parts of digestive tract; Z79.82 Long term (current) use of aspirin; Z79.899 Other long term (current) drug therapy

== ENCOUNTER 2022-03-28 13:23 | Emergency (ER) | payer BC ==
[~2022-03-28] VITALS: Ht 167.6 cm; Wt 95.3 kg
[~2022-03-28 13:23] MED LIST changes: +CLEOCIN HCL300 MG PO
[2022-03-28] MEDS ORDERED: CEFDINIR300 MG PO (16:54)
[2022-03-28] MEDS ORDERED: MEDI-MECLIZINE25 MG PO (16:54)
== END 2022-03-28 17:08 | disposition home or self-care (01) ==
LOC: ED 13:23
DX: H66.91 Otitis media, unspecified, right ear (principal); R42 Dizziness and giddiness; Z90.49 Acquired absence of other specified parts of digestive tract; Z98.890 Other specified postprocedural states; F17.200 Nicotine dependence, unspecified, uncomplicated

== ENCOUNTER 2022-06-08 20:28 | Emergency (ER) | payer BC ==
[~2022-06-08] VITALS: Ht 167.6 cm; Wt 99.8 kg
[~2022-06-08 20:28] MED LIST changes: +CEFDINIR300 MG PO; +MEDI-MECLIZINE25 MG PO
== END 2022-06-08 22:13 | disposition home or self-care (01) ==
LOC: ED 20:28
DX: S60.222A Contusion of left hand, initial encounter (principal); I10 Essential (primary) hypertension; J45.909 Unspecified asthma, uncomplicated; F41.9 Anxiety disorder, unspecified; Z98.890 Other specified postprocedural states; F17.200 Nicotine dependence, unspecified, uncomplicated; Z90.49 Acquired absence of other specified parts of digestive tract; W01.0XXA Fall on same level from slipping, tripping and stumbling without subsequent striking against object, initial encounter; Y93.89 Activity, other specified; Y92.009 Unspecified place in unspecified non-institutional (private) residence as the place of occurrence of the external cause; Y99.8 Other external cause status

== ENCOUNTER 2022-07-11 09:58 | Emergency (ER) | payer BC ==
[~2022-07-11] VITALS: Ht 167.6 cm; Wt 104.3 kg
[2022-07-11] MEDS ORDERED: VIBRA-TAB100 MG PO (10:17)
== END 2022-07-11 11:22 | disposition home or self-care (01) ==
LOC: ED 09:58
DX: S83.241A Other tear of medial meniscus, current injury, right knee, initial encounter (principal); J06.9 Acute upper respiratory infection, unspecified; R05.9 Cough, unspecified; R09.81 Nasal congestion; I10 Essential (primary) hypertension; J45.909 Unspecified asthma, uncomplicated; F41.9 Anxiety disorder, unspecified; Z88.8 Allergy status to other drugs, medicaments and biological substances; Z90.49 Acquired absence of other specified parts of digestive tract; Z98.890 Other specified postprocedural states; F17.200 Nicotine dependence, unspecified, uncomplicated; X58.XXXA Exposure to other specified factors, initial encounter; Y93.89 Activity, other specified; Y92.89 Other specified places as the place of occurrence of the external cause; Y99.8 Other external cause status

== ENCOUNTER 2022-08-14 08:36 | Emergency (ER) | payer BC ==
[~2022-08-14] VITALS: Wt 95.3 kg
[~2022-08-14 08:36] MED LIST changes: +VIBRA-TAB100 MG PO
[2022-08-14] MEDS ORDERED: ASPIRIN ADULT L81 M2 PO (08:58)
[2022-08-14] MEDS ORDERED: ZITHROMAX250 MG PO (09:00)
[2022-08-14] MEDS ORDERED: Motrin,Rufen800 MG PO (09:00)
[2022-08-14] MEDS ORDERED: PREDNISONE50 MG PO (09:00)
== END 2022-08-14 09:05 | disposition home or self-care (01) ==
LOC: ED 08:36
DX: J01.90 Acute sinusitis, unspecified (principal); J45.909 Unspecified asthma, uncomplicated; R11.0 Nausea; I10 Essential (primary) hypertension; F41.9 Anxiety disorder, unspecified; Z88.8 Allergy status to other drugs, medicaments and biological substances; Z90.49 Acquired absence of other specified parts of digestive tract; Z98.890 Other specified postprocedural states; F17.200 Nicotine dependence, unspecified, uncomplicated

== ENCOUNTER 2022-08-21 10:28 | Emergency (ER) | payer BC ==
[~2022-08-21] VITALS: Wt 54.4 kg
[~2022-08-21 10:28] MED LIST changes: +ASPIRIN ADULT L81 M2 PO
[2022-08-21 10:46] LABS: BASO % 0.3 % (0.0-1.0); EOS # 0.1 10*3/uL (0.0-0.4); EOS % 1.5 % (1.0-4.0); HEMATOCRIT 38.4 % (37.0-47.0); LYMPH # 1.5 10*3/uL (1.3-4.4); LYMPH % 20.2 % (27.0-41.0); MEAN CELL VOLUME 84.6 fl (81.0-99.0); MEAN CORPUSCULAR HGB CONC 33.1 g/dl (33.0-37.0); MEAN PLATELET VOLUME 9.5 fl (9.6-12.3); MONO # 0.3 10*3/uL (0.1-1.0); MONO % 4.3 % (3.0-9.0); NEUT # 5.4 10*3/uL (2.3-7.9); NEUT % 73.4 % (47.0-73.0); PLATELET COUNT AUTOMATED 317 10*3/uL (130-400); RED BLOOD COUNT 4.54 10*6/uL (4.10-5.10); RED CELL DISTRI WIDTH 13.9 % (0-14.5); WHITE BLOOD COUNT 7.3 10*3/uL (4.8-10.8)
[2022-08-21 10:57] LABS: ACT PARTIAL THROMBO TIME 25.9 SECONDS (20.0-32.1)
[2022-08-21 11:10] LABS: ALKALINE PHOSPHATASE 65 U/L (46-116); BUN 9 mg/dl (9-23); CHLORIDE 106 mmol/L (98-107); POTASSIUM 3.9 mmol/L (3.4-5.1); SGPT/ALT 23 U/L (10-49); TOTAL PROTEIN 7.1 gm/dL (6.0-8.0)
== END 2022-08-21 13:43 | disposition home or self-care (01) ==
LOC: ED 10:28
PROVIDERS: Student in an Organized Health Care Education/Training Program
DX: R07.89 Other chest pain (principal); M25.512 Pain in left shoulder; I10 Essential (primary) hypertension; J45.909 Unspecified asthma, uncomplicated; Z88.8 Allergy status to other drugs, medicaments and biological substances; Z90.49 Acquired absence of other specified parts of digestive tract; Z98.890 Other specified postprocedural states; F17.200 Nicotine dependence, unspecified, uncomplicated

== ENCOUNTER → 2022-08-29 | Outpatient (CLI) | payer BC | END | disposition home or self-care (01) | LOC: MRI 13:59 | PROVIDERS: ATTEND Orthopaedic Surgery | DX: S83.241A Other tear of medial meniscus, current injury, right knee, initial encounter (principal); X58.XXXA Exposure to other specified factors, initial encounter; Y93.89 Activity, other specified; Y92.89 Other specified places as the place of occurrence of the external cause; Y99.8 Other external cause status ==

== ENCOUNTER 2022-11-13 10:44 | Emergency (ER) | payer BC ==
[~2022-11-13] VITALS: Wt 108.9 kg
== END 2022-11-13 11:41 | disposition home or self-care (01) ==
LOC: ED 10:44
DX: J06.9 Acute upper respiratory infection, unspecified (principal); I10 Essential (primary) hypertension; J45.909 Unspecified asthma, uncomplicated; F41.9 Anxiety disorder, unspecified; Z98.890 Other specified postprocedural states; Z90.49 Acquired absence of other specified parts of digestive tract; Z95.5 Presence of coronary angioplasty implant and graft; F17.200 Nicotine dependence, unspecified, uncomplicated

== ENCOUNTER 2022-11-22 15:52 | Emergency (ER) | payer BC ==
[~2022-11-22] VITALS: Wt 106.6 kg
[2022-11-22] MEDS ORDERED: PREDNISONE50 MG PO (17:33)
[2022-11-22] MEDS ORDERED: VIBRAMYCIN100 MG PO (17:33)
== END 2022-11-22 17:46 | disposition home or self-care (01) ==
LOC: ED 15:52
DX: J18.9 Pneumonia, unspecified organism (principal); I10 Essential (primary) hypertension; I25.10 Atherosclerotic heart disease of native coronary artery without angina pectoris; I25.2 Old myocardial infarction; J45.909 Unspecified asthma, uncomplicated; F41.9 Anxiety disorder, unspecified; Z86.73 Personal history of transient ischemic attack (TIA), and cerebral infarction without residual deficits; Z90.49 Acquired absence of other specified parts of digestive tract; Z95.5 Presence of coronary angioplasty implant and graft; Z98.890 Other specified postprocedural states; F17.200 Nicotine dependence, unspecified, uncomplicated

== ENCOUNTER 2022-12-01 14:09 | Emergency (ER) | payer BC ==
[~2022-12-01] VITALS: Wt 101.2 kg
[2022-12-01 17:22] LABS: BASO % 0.4 % (0.0-1.0); EOS # 0.1 10*3/uL (0.0-0.4); EOS % 1.7 % (1.0-4.0); HEMATOCRIT 37.8 % (37.0-47.0); LYMPH # 2.4 10*3/uL (1.3-4.4); LYMPH % 31.4 % (27.0-41.0); MEAN CELL VOLUME 84.9 fl (81.0-99.0); MEAN CORPUSCULAR HGB 28.3 pg (27.0-31.0); MEAN CORPUSCULAR HGB CONC 33.3 g/dl (33.0-37.0); MEAN PLATELET VOLUME 9.8 fl (9.6-12.3); MONO # 0.7 10*3/uL (0.1-1.0); MONO % 8.9 % (3.0-9.0); NEUT # 4.4 10*3/uL (2.3-7.9); NEUT % 57.3 % (47.0-73.0); PLATELET COUNT AUTOMATED 420 10*3/uL (130-400); RED BLOOD COUNT 4.45 10*6/uL (4.10-5.10); RED CELL DISTRI WIDTH 13.9 % (0-14.5); WHITE BLOOD COUNT 7.6 10*3/uL (4.8-10.8)
[2022-12-01 17:24] LABS: BILIRUBIN Negative (Negative); BLOOD Negative (Negative); CLARITY Clear (Clear); COLOR Yellow (Yellow); GLUCOSE Negative (Negative); KETONE Negative (Negative); LEUKO ESTERASE Trace (Negative); NITRITE Negative (Negative); PH 6.5 (4.5-8.0); SPECIFIC GRAVITY 1.015 (1.001-1.030)
[2022-12-01 17:30] LABS: RBC 0-2 rbc/hpf (0-2)
[2022-12-01 17:52] LABS: ALKALINE PHOSPHATASE 68 U/L (46-116); BUN 8 mg/dl (9-23); CHLORIDE 104 mmol/L (98-107); LIPASE 34 U/L (12-53); POTASSIUM 3.3 mmol/L (3.4-5.1); SGPT/ALT 21 U/L (10-49)
== END 2022-12-01 21:36 | disposition home or self-care (01) ==
LOC: ED 14:09
PROVIDERS: Nurse Practitioner
DX: K52.9 Noninfective gastroenteritis and colitis, unspecified (principal); I10 Essential (primary) hypertension; J45.909 Unspecified asthma, uncomplicated; F41.9 Anxiety disorder, unspecified; I25.2 Old myocardial infarction; Z90.49 Acquired absence of other specified parts of digestive tract; Z98.890 Other specified postprocedural states; Z95.5 Presence of coronary angioplasty implant and graft; F17.200 Nicotine dependence, unspecified, uncomplicated

== ENCOUNTER 2023-03-02 11:45 | Emergency (ER) | payer BC ==
[~2023-03-02] VITALS: Ht 167.6 cm; Wt 96.6 kg
[2023-03-02] MEDS ORDERED: AMOX-CLAV 875-1 EACH PO (12:14)
== END 2023-03-02 12:22 | disposition home or self-care (01) ==
LOC: ED 11:45
DX: J32.9 Chronic sinusitis, unspecified (principal); H66.91 Otitis media, unspecified, right ear; H92.02 Otalgia, left ear; I10 Essential (primary) hypertension; J45.909 Unspecified asthma, uncomplicated; F41.9 Anxiety disorder, unspecified; I25.2 Old myocardial infarction; I25.10 Atherosclerotic heart disease of native coronary artery without angina pectoris; E78.5 Hyperlipidemia, unspecified; F17.210 Nicotine dependence, cigarettes, uncomplicated; Z79.899 Other long term (current) drug therapy; Z79.82 Long term (current) use of aspirin; Z95.5 Presence of coronary angioplasty implant and graft; Z90.49 Acquired absence of other specified parts of digestive tract; Z87.42 Personal history of other diseases of the female genital tract

== ENCOUNTER 2023-04-18 10:37 | Emergency (ER) | payer BC ==
[~2023-04-18] VITALS: Wt 104.3 kg
[~2023-04-18 10:37] MED LIST changes: +AMOX-CLAV 875-1 EACH PO
[2023-04-18] MEDS ORDERED: AMOX-CLAV 875-1 EACH PO (11:07)
== END 2023-04-18 11:30 | disposition home or self-care (01) ==
LOC: ED 10:37
DX: J32.9 Chronic sinusitis, unspecified (principal); J45.909 Unspecified asthma, uncomplicated; I25.10 Atherosclerotic heart disease of native coronary artery without angina pectoris; E78.5 Hyperlipidemia, unspecified; E78.00 Pure hypercholesterolemia, unspecified; R73.9 Hyperglycemia, unspecified; E83.41 Hypermagnesemia; I10 Essential (primary) hypertension; F41.9 Anxiety disorder, unspecified; E87.6 Hypokalemia; Z95.5 Presence of coronary angioplasty implant and graft; Z90.49 Acquired absence of other specified parts of digestive tract; Z98.890 Other specified postprocedural states; F17.200 Nicotine dependence, unspecified, uncomplicated

== ENCOUNTER → 2023-05-20 | Outpatient (CLI) | payer BC | END | disposition home or self-care (01) | LOC: RESCLI 01:15 | PROVIDERS: ATTEND Internal Medicine | DX: J32.9 Chronic sinusitis, unspecified (principal); I25.10 Atherosclerotic heart disease of native coronary artery without angina pectoris; I10 Essential (primary) hypertension; J45.909 Unspecified asthma, uncomplicated; Z88.8 Allergy status to other drugs, medicaments and biological substances; Z98.890 Other specified postprocedural states; Z82.49 Family history of ischemic heart disease and other diseases of the circulatory system; F17.210 Nicotine dependence, cigarettes, uncomplicated; Z90.49 Acquired absence of other specified parts of digestive tract; Z79.82 Long term (current) use of aspirin; Z79.899 Other long term (current) drug therapy ==

== ENCOUNTER → 2023-05-27 | Outpatient (CLI) | payer BC | END | disposition home or self-care (01) | LOC: RESCLI 02:31 | PROVIDERS: ATTEND Internal Medicine | DX: Z01.89 Encounter for other specified special examinations (principal); I10 Essential (primary) hypertension; J45.909 Unspecified asthma, uncomplicated; I25.10 Atherosclerotic heart disease of native coronary artery without angina pectoris; J32.9 Chronic sinusitis, unspecified; R73.09 Other abnormal glucose; D49.9 Neoplasm of unspecified behavior of unspecified site; Z12.31 Encounter for screening mammogram for malignant neoplasm of breast; Z88.8 Allergy status to other drugs, medicaments and biological substances; F10.90 Alcohol use, unspecified, uncomplicated; Z82.49 Family history of ischemic heart disease and other diseases of the circulatory system; Z98.890 Other specified postprocedural states; Z95.0 Presence of cardiac pacemaker; Z79.82 Long term (current) use of aspirin; Z79.899 Other long term (current) drug therapy; R22.32 Localized swelling, mass and lump, left upper limb; W19.XXXA Unspecified fall, initial encounter; Y93.89 Activity, other specified; Y92.89 Other specified places as the place of occurrence of the external cause; Y99.8 Other external cause status ==

== ENCOUNTER → 2023-06-25 | Outpatient (CLI) | payer BC | END | disposition home or self-care (01) | LOC: MAMMO 15:27 → RESCLI 15:27 → MAMMO 15:30 | PROVIDERS: ATTEND Family Medicine | DX: M19.90 Unspecified osteoarthritis, unspecified site (principal); T14.8XXA Other injury of unspecified body region, initial encounter; Z79.899 Other long term (current) drug therapy; F17.210 Nicotine dependence, cigarettes, uncomplicated; Z98.890 Other specified postprocedural states; Z88.8 Allergy status to other drugs, medicaments and biological substances; S62.639A Displaced fracture of distal phalanx of unspecified finger, initial encounter for closed fracture; Z90.49 Acquired absence of other specified parts of digestive tract; Z12.31 Encounter for screening mammogram for malignant neoplasm of breast; X58.XXXA Exposure to other specified factors, initial encounter; Y93.89 Activity, other specified; Y92.89 Other specified places as the place of occurrence of the external cause; Y99.8 Other external cause status ==

== ENCOUNTER 2023-09-23 11:14 | Emergency (ER) | payer BC ==
[~2023-09-23] VITALS: Ht 167.6 cm; Wt 106.0 kg
[2023-09-23 11:35] LABS: BASO % 0.6 % (0.0-1.0); EOS # 0.2 10*3/uL (0.0-0.4); EOS % 2.2 % (1.0-4.0); HEMATOCRIT 35.7 % (37.0-47.0); LYMPH # 2.7 10*3/uL (1.3-4.4); LYMPH % 38.9 % (27.0-41.0); MEAN CORPUSCULAR HGB 27.1 pg (27.0-31.0); MEAN CORPUSCULAR HGB CONC 32.2 g/dl (33.0-37.0); MEAN PLATELET VOLUME 9.5 fl (9.6-12.3); MONO # 0.6 10*3/uL (0.1-1.0); MONO % 7.9 % (3.0-9.0); NEUT # 3.5 10*3/uL (2.3-7.9); NEUT % 50.3 % (47.0-73.0); PLATELET COUNT AUTOMATED 324 10*3/uL (130-400); RED BLOOD COUNT 4.25 10*6/uL (4.10-5.10); RED CELL DISTRI WIDTH 14.1 % (0-14.5)
[2023-09-23 11:47] LABS: ACT PARTIAL THROMBO TIME 24.9 SECONDS (20.0-32.1)
[2023-09-23 11:57] LABS: ALKALINE PHOSPHATASE 71 U/L (46-116); BUN 12 mg/dl (9-23); CHLORIDE 109 mmol/L (98-107); LIPASE 50 U/L (12-53); POTASSIUM 3.4 mmol/L (3.4-5.1); SGPT/ALT 21 U/L (5-49); TOTAL PROTEIN 7.1 gm/dL (6.0-8.0)
[2023-09-23] MEDS ORDERED: MORPHINE Sulfate 2 MG/ML SYR IV ONE (12:05)
== END 2023-09-23 13:59 | disposition home or self-care (01) ==
LOC: ED 11:14
PROVIDERS: Physician Assistant Medical
DX: R07.89 Other chest pain (principal); I25.10 Atherosclerotic heart disease of native coronary artery without angina pectoris; D64.9 Anemia, unspecified; J45.909 Unspecified asthma, uncomplicated; I10 Essential (primary) hypertension; F41.9 Anxiety disorder, unspecified; E78.5 Hyperlipidemia, unspecified; F17.200 Nicotine dependence, unspecified, uncomplicated; Z95.5 Presence of coronary angioplasty implant and graft; Z90.49 Acquired absence of other specified parts of digestive tract; Z98.890 Other specified postprocedural states

== ENCOUNTER 2023-10-25 15:08 | Emergency (ER) | payer BC ==
[~2023-10-25] VITALS: Ht 167.6 cm; Wt 104.3 kg
[2023-10-25 15:48] LABS: BASO % 0.7 % (0.0-1.0); EOS # 0.1 10*3/uL (0.0-0.4); EOS % 2.1 % (1.0-4.0); HEMATOCRIT 37.9 % (37.0-47.0); LYMPH # 2.1 10*3/uL (1.3-4.4); LYMPH % 36.9 % (27.0-41.0); MEAN CELL VOLUME 84.4 fl (81.0-99.0); MEAN CORPUSCULAR HGB 26.7 pg (27.0-31.0); MEAN CORPUSCULAR HGB CONC 31.7 g/dl (33.0-37.0); MEAN PLATELET VOLUME 9.5 fl (9.6-12.3); MONO # 0.4 10*3/uL (0.1-1.0); NEUT % 53.1 % (47.0-73.0); PLATELET COUNT AUTOMATED 285 10*3/uL (130-400); RED BLOOD COUNT 4.49 10*6/uL (4.10-5.10); RED CELL DISTRI WIDTH 15.2 % (0-14.5); WHITE BLOOD COUNT 5.6 10*3/uL (4.8-10.8)
[2023-10-25 15:59] LABS: ACT PARTIAL THROMBO TIME 25.6 SECONDS (20.0-32.1)
[2023-10-25 16:12] LABS: ALKALINE PHOSPHATASE 70 U/L (46-116); BUN 17 mg/dl (9-23); CHLORIDE 109 mmol/L (98-107); POTASSIUM 3.8 mmol/L (3.4-5.1); SGPT/ALT 30 U/L (5-49); TOTAL PROTEIN 7.2 gm/dL (6.0-8.0)
[2023-10-25 17:40] LABS: BILIRUBIN Negative (Negative); BLOOD Negative (Negative); CLARITY Clear (Clear); COLOR Yellow (Yellow); GLUCOSE Negative (Negative); KETONE Negative (Negative); LEUKO ESTERASE Negative (Negative); NITRITE Negative (Negative); SPECIFIC GRAVITY <= 1.005 (1.001-1.030); UROBILINOGEN 0.2 E.U./dl (0.0-1.0)
[2023-10-25 17:48] LABS: URINE AMPHETAMINES Negative (1000ng/ml); URINE BARBITURATES Negative (200ng/ml); URINE BENZODIAZEPINES Negative (200ng/ml); URINE CANNABINOIDS (THC) Negative (50ng/ml); URINE COCAINE Negative (300ng/ml); URINE METHADONE Negative (300ng/ml); URINE OPIATES Negative (300ng/ml); URINE PHENCYCLIDINE Negative (25ng/ml)
== END 2023-10-25 19:23 | disposition home or self-care (01) ==
LOC: ED 15:08
PROVIDERS: Emergency Medicine; Nurse Practitioner
DX: R07.89 Other chest pain (principal); I25.10 Atherosclerotic heart disease of native coronary artery without angina pectoris; E78.5 Hyperlipidemia, unspecified; I10 Essential (primary) hypertension; J45.909 Unspecified asthma, uncomplicated; F41.9 Anxiety disorder, unspecified; I25.2 Old myocardial infarction; F17.200 Nicotine dependence, unspecified, uncomplicated; Z95.5 Presence of coronary angioplasty implant and graft; Z90.49 Acquired absence of other specified parts of digestive tract; Z98.890 Other specified postprocedural states; Z53.29 Procedure and treatment not carried out because of patient's decision for other reasons

== ENCOUNTER 2023-12-01 10:55 | Emergency (ER) | payer BC ==
[~2023-12-01] VITALS: Ht 12.7 cm; Wt 97.1 kg
[2023-12-01] MEDS ORDERED: PREDNISONE20 M1 PO (11:12)
[2023-12-01] MEDS ORDERED: AVPAK AZITHROM250 M1 PO (11:12)
== END 2023-12-01 11:53 | disposition home or self-care (01) ==
LOC: ED 10:55
DX: J45.909 Unspecified asthma, uncomplicated (principal); H66.93 Otitis media, unspecified, bilateral; I25.10 Atherosclerotic heart disease of native coronary artery without angina pectoris; I10 Essential (primary) hypertension; E78.5 Hyperlipidemia, unspecified; F41.9 Anxiety disorder, unspecified; I25.2 Old myocardial infarction; F17.290 Nicotine dependence, other tobacco product, uncomplicated; Z95.5 Presence of coronary angioplasty implant and graft; Z90.49 Acquired absence of other specified parts of digestive tract; Z98.890 Other specified postprocedural states

== ENCOUNTER 2023-12-04 06:56 | Emergency (ER) | payer BC ==
[~2023-12-04] VITALS: Ht 167.6 cm; Wt 104.3 kg
[~2023-12-04 06:56] MED LIST changes: +AVPAK AZITHROM250 M1 PO
[2023-12-04] MEDS ORDERED: Lactated Ringer's Solution 1,000 ML IV SCH (08:15)
[2023-12-04] MEDS ORDERED: ACETAMINOPHEN 325 MG TAB PO ONE (08:15)
[2023-12-04 08:52] LABS: BASO % 0.2 % (0.0-1.0); EOS % 0.5 % (1.0-4.0); LYMPH # 2.5 10*3/uL (1.3-4.4); LYMPH % 28.7 % (27.0-41.0); MEAN CELL VOLUME 83.7 fl (81.0-99.0); MEAN CORPUSCULAR HGB 27.3 pg (27.0-31.0); MEAN CORPUSCULAR HGB CONC 32.6 g/dl (33.0-37.0); MEAN PLATELET VOLUME 9.7 fl (9.6-12.3); MONO % 11.6 % (3.0-9.0); NEUT # 5.1 10*3/uL (2.3-7.9); NEUT % 58.5 % (47.0-73.0); PLATELET COUNT AUTOMATED 279 10*3/uL (130-400); RED BLOOD COUNT 4.66 10*6/uL (4.10-5.10); RED CELL DISTRI WIDTH 15.8 % (0-14.5); WHITE BLOOD COUNT 8.7 10*3/uL (4.8-10.8)
[2023-12-04 08:54] LABS: BILIRUBIN Negative (Negative); BLOOD Negative (Negative); CLARITY Clear (Clear); COLOR Yellow (Yellow); GLUCOSE Negative (Negative); KETONE Negative (Negative); LEUKO ESTERASE 1+ (Negative); NITRITE Negative (Negative); SPECIFIC GRAVITY 1.015 (1.001-1.030); UROBILINOGEN 0.2 E.U./dl (0.0-1.0)
[2023-12-04 09:10] LABS: ALKALINE PHOSPHATASE 70 U/L (46-116); BUN 15 mg/dl (9-23); CHLORIDE 105 mmol/L (98-107); POTASSIUM 3.4 mmol/L (3.4-5.1); SGPT/ALT 15 U/L (5-49); TOTAL PROTEIN 6.9 gm/dL (6.0-8.0)
[2023-12-04 09:21] LABS: BACTERIA 2+; WBC 16-20 wbc/hpf (0-5)
[2023-12-04 09:22] LABS: MUCOUS 1+
== END 2023-12-04 10:51 | disposition home or self-care (01) ==
LOC: ED 06:56
PROVIDERS: Emergency Medicine
DX: J06.9 Acute upper respiratory infection, unspecified (principal); Z20.822 Contact with and (suspected) exposure to COVID-19; M54.50 Low back pain, unspecified; J45.909 Unspecified asthma, uncomplicated; I25.10 Atherosclerotic heart disease of native coronary artery without angina pectoris; I25.2 Old myocardial infarction; E78.5 Hyperlipidemia, unspecified; F17.200 Nicotine dependence, unspecified, uncomplicated; Z79.899 Other long term (current) drug therapy; Z79.2 Long term (current) use of antibiotics; Z79.82 Long term (current) use of aspirin; Z98.890 Other specified postprocedural states; Z95.5 Presence of coronary angioplasty implant and graft; Z87.42 Personal history of other diseases of the female genital tract; Z90.49 Acquired absence of other specified parts of digestive tract

== ENCOUNTER → 2023-12-09 | Outpatient (CLI) | payer BC ==
[2023-12-09 15:13] LABS: ALKALINE PHOSPHATASE 63 U/L (46-116); BUN 12 mg/dl (9-23); CHLORIDE 106 mmol/L (98-107); POTASSIUM 4.2 mmol/L (3.4-5.1); SGPT/ALT 23 U/L (5-49); TOTAL PROTEIN 7.1 gm/dL (6.0-8.0)
[2023-12-09 16:12] LABS: BASO % 0.1 % (0.0-1.0); HEMATOCRIT 37.7 % (37.0-47.0); LYMPH # 2.2 10*3/uL (1.3-4.4); LYMPH % 13.6 % (27.0-41.0); MEAN CELL VOLUME 84.7 fl (81.0-99.0); MEAN CORPUSCULAR HGB 27.2 pg (27.0-31.0); MEAN CORPUSCULAR HGB CONC 32.1 g/dl (33.0-37.0); MEAN PLATELET VOLUME 10.2 fl (9.6-12.3); MONO # 0.4 10*3/uL (0.1-1.0); MONO % 2.7 % (3.0-9.0); NEUT # 13.2 10*3/uL (2.3-7.9); NEUT % 81.8 % (47.0-73.0); PLATELET COUNT AUTOMATED 428 10*3/uL (130-400); RED BLOOD COUNT 4.45 10*6/uL (4.10-5.10); RED CELL DISTRI WIDTH 15.9 % (0-14.5); WHITE BLOOD COUNT 16.1 10*3/uL (4.8-10.8)
== END | disposition home or self-care (01) ==
LOC: LAB 14:23
PROVIDERS: ATTEND Nurse Practitioner Family
DX: R78.81 Bacteremia (principal)

== ENCOUNTER → 2024-01-02 | Outpatient (CLI) | payer BC | END | disposition home or self-care (01) | LOC: RAD 12:18 | PROVIDERS: ATTEND Nurse Practitioner Family | DX: M25.461 Effusion, right knee (principal) ==

== ENCOUNTER 2024-04-23 10:56 | Emergency (ER) | payer BC ==
[~2024-04-23] VITALS: Wt 104.3 kg
[2024-04-23] MEDS ORDERED: Ondansetron Hydrochloride 4 MG/2 ML VIAL IV ONE (11:15)
[2024-04-23] MEDS ORDERED: SODIUM CHLORIDE 0.9% 1,000 ML IV ONE (11:15)
[2024-04-23] MEDS ORDERED: MORPHINE Sulfate 2 MG/ML SYR IV ONE (11:15)
[2024-04-23] MEDS ORDERED: IOHEXOL 300 MG/ML 100 ML VIAL IV ONE (11:20)
[2024-04-23 11:34] LABS: BASO % 0.4 % (0.0-1.0); EOS # 0.2 10*3/uL (0.0-0.4); EOS % 2.6 % (1.0-4.0); HEMATOCRIT 37.9 % (37.0-47.0); MEAN CELL VOLUME 77.3 fl (81.0-99.0); MEAN CORPUSCULAR HGB 24.1 pg (27.0-31.0); MEAN CORPUSCULAR HGB CONC 31.1 g/dl (33.0-37.0); MEAN PLATELET VOLUME 9.5 fl (9.6-12.3); MONO # 0.6 10*3/uL (0.1-1.0); NEUT # 4.8 10*3/uL (2.3-7.9); NEUT % 66.7 % (47.0-73.0); PLATELET COUNT AUTOMATED 311 10*3/uL (130-400); RED CELL DISTRI WIDTH 16.2 % (0-14.5); WHITE BLOOD COUNT 7.3 10*3/uL (4.8-10.8)
[2024-04-23] MEDS ORDERED: IOHEXOL 300 MG/ML 100 ML VIAL ONE (11:40)
[2024-04-23 11:59] LABS: BUN 11 mg/dl (9-23); CHLORIDE 106 mmol/L (98-107); POTASSIUM 3.9 mmol/L (3.4-5.1)
[2024-04-23] MEDS ORDERED: Vancomycin Hydrochloride 250 ML IV ONE (12:10)
[2024-04-23] MEDS ORDERED: Piperacillin Sodium/Tazobact 50 ML IV ONE (12:10)
[2024-04-23] MEDS ORDERED: AMOX-CLAV 875-1 EACH PO (12:53)
[2024-04-23] MEDS ORDERED: HYDROCODONE-AC1 EAC1 PO (12:53)
[2024-04-23] MEDS ORDERED: CLINDAMYCIN HC300 MG PO (12:53)
== END 2024-04-23 13:13 | disposition home or self-care (01) ==
LOC: ED 10:56
PROVIDERS: Physician Assistant Medical
DX: L03.213 Periorbital cellulitis (principal); I10 Essential (primary) hypertension; J45.909 Unspecified asthma, uncomplicated; F41.9 Anxiety disorder, unspecified; I25.2 Old myocardial infarction; R50.9 Fever, unspecified; F17.200 Nicotine dependence, unspecified, uncomplicated; Z98.890 Other specified postprocedural states; Z90.49 Acquired absence of other specified parts of digestive tract

== ENCOUNTER 2024-06-11 12:44 | Emergency (ER) | payer BC ==
[~2024-06-11] VITALS: Ht 167.6 cm; Wt 104.3 kg
[~2024-06-11 12:44] MED LIST changes: +HYDROCODONE-AC1 EAC1 PO; +LEVOFLOXACIN750 M2 PO; +LINEZOLID600 MG PO; +LIPITOR80 MG PO
[2024-06-11] MEDS ORDERED: ALBUTEROL 8 GM INHALER INH ONE (13:05)
== END 2024-06-11 13:06 | disposition home or self-care (01) ==
LOC: ED 12:44
DX: J32.0 Chronic maxillary sinusitis (principal); J32.1 Chronic frontal sinusitis; J45.909 Unspecified asthma, uncomplicated; I25.10 Atherosclerotic heart disease of native coronary artery without angina pectoris; I25.2 Old myocardial infarction; I10 Essential (primary) hypertension; E78.5 Hyperlipidemia, unspecified; F17.200 Nicotine dependence, unspecified, uncomplicated; Z79.899 Other long term (current) drug therapy; Z79.2 Long term (current) use of antibiotics; Z79.82 Long term (current) use of aspirin; Z98.890 Other specified postprocedural states; Z95.5 Presence of coronary angioplasty implant and graft; Z87.42 Personal history of other diseases of the female genital tract; Z90.49 Acquired absence of other specified parts of digestive tract